=== PATIENT | male | born 1940 | race Caucasian/White ===

== ENCOUNTER 2016-12-03 19:39 | Observation (INO) | payer MEDICARE, OTHER ==
[~2016-12-03] VITALS: Ht 172.7 cm; Wt 85.8 kg
[2016-12-03 19:42] VITALS: BP 131/77; PULSE 52; RESP 16; O2SAT 96
--- NOTE | 2016-12-03 20:09 | ED.REPORT ---
HPI-Neurologic Deficit Date of Service December 03, 2016 ED Provider: Dr. Ahumada 76 y/o male with no pertinent hx presents to the ED due to left sided facial droop, onset 8 hours ago at approximately 13:30 that lasted for about 30 minutes. 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 His also reported slight L sided facial droop. The pt denies any arm weakness. Pt also complains of fatigue, weakness and headache. All the sx have now reportedly resolved. The pt states his headaches are frequent and that is what mainly concerns him the most. Pt denies any difficulty with speech. Pt denies HTN and HLD. Denies smoking, EtOH use and drugs. PCP [facility] Nursing Notes Stated Complaint: WEAKNESS, LEFT FACIAL DROOP Chief Complaint: Neuro Symptoms/ Deficits Nursing Notes Reviewed: Yes Allergies: Coded Allergies: Penicillins (Verified Allergy, Mild, Hives, 12/04/16) Scheduled Levothyroxine (Synthroid) 25 Mcg Tablet 25 MCG PO MORNING General Time Seen by Provider: 20:08 Chief Complaint Other (Left sided facial droop) Hx Obtained From: Patient, Spouse Arrived By: Walk-in Sudden in Onset?: Yes Onset Occurred: 5 - 8 hours ago Symptom Duration: 16 - 30 minutes Progression Since Onset: Resolved Location: : Head Quality: Painful Radiation: : Does not radiate Severity: Current: Mild Severity: Maximum: Moderate Recent Healthcare: No recent doctor visit Similar Sx Previous: No Risk Factors TPA Administration/Criteria Stroke Thrombolytic Therapy : TPA Considered: No TPA Administered Intravenously: No, exclusion criteria (Outside of time frame) NIH Stroke Scale Level of Consciousness: Alert and responsive (0) Ask Month & Age: Both questions right (0) Open/Close 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/Hand Manufacturing 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 tasks (0) Horizontal EO Movements: None (0) Visual Root: No visual loss (0) Facial Palsy: Normal symmetry (0) Right Arm Motor Drift (10s): No drift 10 sec (0) Left Arm Motor Drift (10s): No drift 10 sec (0) Right Leg Motor Drift (5s): No drift 5 sec (0) Left Leg Motor Drift (5s): No drift 5 sec (0) Limb Ataxia FNF/Heel-Hiar: No ataxia (0) Sensation (Arms/Legs/Face): No sensory loss (0) Language Aphasia: No aphasia, normal (0) Dysarthria: No dysarthria, normal (0) Extinction/Inattention: No exctinct/inattent (0) NIHSS Score: 0 Time NIHSS Performed: 23:04 Date NIHSS Performed: December 03, 2016 Past Medical History Past Medical History none reported Past Surgical History Hernia repair Smoking History Never Smoker Social History Alcohol Use: Denies alcohol use Drug Use: Denies drug use Other Social History: Good social support, Ambulatory Status Independent Review of Systems Reports: left sided facial droop Constitutional: Reports: Fatigue, Weakness - generalized Neurologic: Reports: Focal weakness (Left arm), Headache, Weakness, Denies: Slurred speech, Unable to speak Complete sys rev & neg: except as marked. Physical Exam Initial Vital Signs Vital Signs (First) Date Time Temp Pulse Resp B/P Pulse Ox O2 Delivery O2 Flow Rate FiO2 12/03/16 19:42 36.6 52 16 131/77 96 Room Air Initial VS: Reviewed ENT: Mucous membranes moist, Conjunctiva normal, No scleral icterus Abdomen / GI: Soft, Non-tender, No guarding, No rebound, No distention Extremities: Vascular intact, Neuro intact, No swelling, No tenderness Skin: Warm, Dry, No cyanosis Psychiatric: Mood/affect normal, Behavior normal, Normal thought content General/Constitutional: Awake, Alert, Cooperative Head / Eyes: Atraumatic, Normocephalic, PERRL Respiratory / Chest: Breath sounds NL, Breath sounds = bilat, No respiratory distress, No rales, No rhonchi, No wheezing Cardiovascular: Heart rate NL, Regular rhythm, Heart sounds NL, No gallop, No murmurs, No rubs, Peripheral circulation NL Neurologic: Oriented X3, Speech NL, No motor deficits, No sensory deficits Neck: Atraumatic, Full range of motion, No carotid bruit Interpretation & Diagnostics Lab Results Interpretation Result Diagram: 12/03/16201912/03/16 2020 Test 12/03/16 20:20 12/03/16 20:21 12/03/16 23:38 White Blood Count 5.8th/mm3 (3.8-10.1) Red Blood Count 4.37mil/mm3 (4.40-5.80) Hemoglobin 13.4g/dL (13.8-17.2) Hematocrit 37.6% (41.0-50.0) Mean Corpuscular Volume 86.0fL (81-100) Mean Corpuscular Hemoglobin 30.7pg (27.0-35.0) Mean Corpuscular Hemoglobin Concent 35.6% (32.0-37.0) Red Cell Distribution Width 13.3% (12.3-15.4) Platelet Count 215bil/L (150-400) Neutrophils (%) (Auto) 57.5% (40-74) Lymphocytes (%) (Auto) 29.3% (14-46) Monocytes (%) (Auto) 10.6% (4-12) Eosinophils (%) (Auto) 1.5% (0-5) Basophils (%) (Auto) 0.9% (0-3) Sodium Level 140mEq/L (134-144) Potassium Level 4.1mEq/L (3.5-5.2) Chloride Level 103mEq/L (97-108) Carbon Dioxide Level 25mmol/L (18-29) Blood Urea Nitrogen 16mg/dL (8-27) Creatinine 0.78mg/dL (0.76-1.27) Estimat Glomerular Filtration Rate 103mL/min (>59) Glucose Level 95mg/dL (60-99) Calcium Level 9.8mg/dL (8.5-10.1) Total Bilirubin 0.3mg/dL (0.0-1.2) Aspartate Amino Transf (AST/SGOT) 21U/L (0-50) Alanine Aminotransferase (ALT/SGPT) 18U/L (0-44) Alkaline Phosphatase 60U/L (25-160) Troponin T < 0.010ug/L (0.0-0.011) Total Protein 6.4g/dL (6.4-8.4) Albumin 4.0g/dL (3.4-5.0) Hold Helm Top Tube Received (Received) Triglycerides Level 108mg/dL (0-149) Cholesterol Level 173mg/dL (100-199) LDL Cholesterol, Calculated 102.400mg/dL (0-99) VLDL Cholesterol 21.600mg/dL HDL Cholesterol 49mg/dL (>39) Cholesterol/HDL Ratio 3.53 (0.0-4.4) General Lab Results Interp 1: Labs reviewed ECG Interpretation ECG Interpretation: Sinus bradycardia. Rate 50. 1st AV block. Time: 20:26 Interpreted by: ED physician CT Head Interpretation IMPRESSION: No acute intracranial process Dictated by: Tolu Alva M.D. on 12/03/2016 at 20:21 Approved by: Toul Alva M.D. on 12/03/2016 at 20:23 Study: Head CT no contrast Interpretation / Wet Read by: Interpret - Radiologist Re-Eval/Medical Decision Med Decision/Clinical Course 76-year-old male in remarkably good health presents with symptoms of a TIA. Neurologic deficits of resolved completely. He will be admitted to the hospitalist service for observation. Re-Evaluation/Progress #1: Time of Eval: 22:26 Re-Evaluation/Progress Note: Pt resting comfortably. Re-Evaluation/Progress #2: Time of Eval: 23:15 Re-Evaluation/Progress Note: Updated patient of labs, imaging results, and plan for admission. He understands and agrees with plan. Code status discussed. Pt is full code. Consultation : Referral / Consult Name: Lisa Brewster DO Consulted With: Hospitalist Call Returned at: 23:18 Manager Telemarketing: Will see patient, Agrees with eval, Agrees with plan, Accepts admit Counseled Regarding: Diagnosis, Lab results, Need for admission Discharge & Departure Impression: Primary Impression: TIA (transient ischemic attack) Transient cerebral ischemia type: unspecified Qualified Code: G45.9 - Transient cerebral ischemic attack, unspecified Disposition: ADMITTED TO HOSPITAL Discharge Condition All VS Reviewed: Yes Scribe Attestation Portions of this note were transcribed by Radhika Gale and Meera Weber. I, , personally performed the history, physical exam and medical decision- making;I reviewed and confirmed the accuracy of the information in the transcribed note. Signed by Radhika Gale and Meera Weber, Scribe. 12/03/16 2318 Herve Ahumada MD December 03, 2016 20:09 Radhika Gale December 03, 2016 20:12 Meera Weber December 03, 2016 22:26
--- NOTE | 2016-12-03 20:25 | DRSVH ---
PROCEDURE: CT BRAIN WITHOUT CONTRAST ([id number]) INDICATIONS: left facial droop, confusion, started at 1330 TECHNIQUE: Noncontrast 4.5 mm thick angled axial sections acquired from the foramen magnum to the vertex, with c oronal reformats. COMPARISON: None. FINDINGS: Image quality: Excellent. CSF spaces: Basal cisterns are patent. No extra-axial fluid collections. The ventricles are symmet keith in size and shape. Brain: No intracranial bleeds or masses. There is cerebral volume loss for age, with resultant vent ricular and sulcal prominence. There are periventricular and deep white matter chronic small vessel ischemic changes. There is intracranial internal carotid artery atherosclerosis. Skull and face: Calvarium and visualized facial bones appear intact, without suspicious lesions. Sinuses: Visualized sinuses and mastoids are clear. IMPRESSION: No acute intracranial process Dictated by: Tolu Alva M.D. on 12/03/2016 at 20:21 Approved by: Tolu Alva M.D. on 12/03/2016 at 20:23
[2016-12-03 20:33] LABS: BASOPHILS % (AUTO) 0.9 % (0-3); EOSINOPHILS % (AUTO) 1.5 % (0-5); MONOCYTES % (AUTO) 10.6 % (4-12); Mean Corpuscular Hemoglobin 30.7 pg (27.0-35.0); NEUTROPHILS % (AUTO) 57.5 % (40-74); Platelet Count 215 bil/L (150-400)
[2016-12-03 20:49] LABS: TROPONIN T < 0.010 ug/L (0.0-0.011)
[2016-12-03 20:56] VITALS: BP 132/76; PULSE 50; RESP 16; O2SAT 97
[2016-12-03] MEDS ORDERED: Polyethylene Glycol (PEG) 17 Gm Powder PO PRN (23:40)
[2016-12-03] MEDS ORDERED: Ondansetron 2 mg/mL 2 mL Inj IVPUSH PRN (23:40)
[2016-12-03] MEDS ORDERED: Alum-Mag Hydrox-Simeth 30 mL Suspension PO PRN (23:40)
[2016-12-03] MEDS ORDERED: Labetalol 5 mg/mL 4 mL Inj IVPUSH PRN (23:40)
[2016-12-04] VITALS (9 sets, daily range): BP systolic 119–136; BP diastolic 69–84; PULSE 51–74; RESP 12–20; O2SAT 96–99
--- NOTE | 2016-12-04 00:24 | NUR ---
Report received from Padmini Zavaleta in ED.
--- NOTE | 2016-12-04 01:27 | NUR ---
ADMIT Pt arrived on floor at 0124, ambulated well to bed. No symptoms at this time.
--- NOTE | 2016-12-04 01:40 | PCM.HPMED ---
Subjective Date of Service December 04, 2016 Primary Provider: Admitting Physician: Lisa Brewster DO Primary Care Physician: Noplouise Attending Physician: Lisa Brewster DO Admit Status: From the Emergency Department, Remote Telemetry Chief Complaint: Weakness with left facial droop History of Present Illness: Patient is 76 y/o male with chronic headaches presents to the ED due to left sided facial droop, onset 8 hours ago at approximately 13:30 that lasted for about 30 minutes. 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 His also reported slight L sided facial droop. Patient denies experiencing any arm weakness, slurred speech, or facial droop, but came in today due to 's concerns. Patient attributes this to being tired after playing a round of golf on 2-3 hours of sleep. Pt also complains of fatigue, weakness and headache. All the sx have now reportedly resolved. Patient states his headaches are frequent and that is what mainly concerns him the most. Pt denies HTN and HLD. Denies smoking, EtOH use and drugs. In the ED vitals all within normal range. Labs significant only for H/H of 13.4 /37.6, otherwise within normal range. ECG showed sinus bradycardia rate 50 with first AV block. CT head negative for any acute intracranial process. Patient is being admitted as observational status to further evaluate his possible stroke. PCP [facility] - Farshad Chairez M.D. Review of Systems: Reports: left sided facial droop (per 's report, patient denies) Constitutional: Reports: Fatigue, Weakness - generalized HEENT: Reports headaches, denies vision changes GI: Denies nausea or vomiting Neurologic: Reports: Weakness, Denies: Slurred speech, Unable to speak Complete sys rev & neg: except as marked. A comprehensive review of systems has been conducted with the patient and found to be negative except what is mentioned above or in the HPI. Allergies Coded Allergies: Penicillins (Verified Allergy, Mild, Hives, 12/04/16) Home Medications Levothyroxine 25 g Advil 200mg tab 1-5 tabs a day for headaches PMH Chronic headaches Hypothyroidism Congenital sinus deficiency Surgical History Nasal surgery multiple hernia repairs appendectomy Family History Father of lung cancer at 42 Mother with emphysema Social History Occupation: ex [employer] Hx Alcohol Use: No Hx Substance Use: No Hx Tobacco Use: No Smoking Status: Never Smoker Living Arrangement: with Family (, local resident) Exam Vital Signs Vital Sign - Last Date Time Temp Pulse Resp B/P Pulse Ox O2 Delivery O2 Flow Rate FiO2 12/03/16 20:56 36.6 50 16 132/76 97 Room Air Exam General: No acute distress, well-developed, well-nourished, appropriately interactive and cooperative, stoic, appears younger than stated age HEENT: Normocephalic, atraumatic. PERRL. EOMI. Anicteric sclerae, moist conjunctivae. Moist mucosus membranes. Narrow oropharynx. Neck: Supple with full range of motion. No JVD. No bruits. No lymphadenopathy. Cardiovascular: Regular rate and rhythm with no murmurs, rubs, or gallops appreciated. No carotid bruits Pulmonary: Clear to auscultation bilaterally with no crackles, wheezes, or rhonchi. Abdomen: Bowel tones present. Soft, nontender, nondistended. Extremities: No clubbing, cyanosis, edema Skin: Dry and intact, no rash Neurological: Alert and oriented 3. CN II-XII grossly intact. Normal muscle strength, tone, and bulk. Strength and sensation intact throughout. Psychiatric: Normal mood and affect. Alert and oriented to person, place, and time. Lab and Diagnostics Result Diagram: 12/03/16201912/03/162019 X-Rays, CTs and MRIs Date of Service: 12/03/161950 PROCEDURE: CT BRAIN WITHOUT CONTRAST ([id number]) INDICATIONS: left facial droop, confusion, started at 1330 IMPRESSION: No acute intracranial process Dictated by: Tolu Alva M.D. on 12/03/2016 at 20:21 Approved by: Tolu Alva M.D. on 12/03/2016 at 20:23 12-lead ECG ECG Interpretation: Sinus bradycardia. Rate 50. 1st AV block. Time: 20:26 Interpreted by: ED physician Assessment & Plan Patient is 76 y/o male with chronic headaches presents to the ED due to left sided facial droop, onset 8 hours ago at approximately 13:30 that lasted for about 30 minutes. 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 His also reported slight L sided facial droop. Patient denies experiencing any arm weakness, slurred speech , or facial droop. Patient admitted for further observation and workup of possible TIA. TIA, present on admission. Acute. - All symptoms resolved, with NIH stroke scale at 0 in ED, CT brain negative - telemetry, neuro checks q4HR - Lipids in normal range, A1c pending - Plavix and aspirin started - Swallow eval, PT, OT ordered - Echocardiogram in am Mild anemia, present on admission. - repeat labs in am Chronic headaches, present on admission. - patient usually takes Advil for this - Tylenol PRN Hypothyroidism - Patient's to call in with correct dosing Acetaminophen-fever/headache/mild/moderate pain Antiemetics, as needed Bowel regimen, as needed Patient status: Patient was admitted under observation status with expected length of stay lesser than two midnights. Pain Evaluation: Adequate Pain Control GI Prophylaxis: Not indicated VTE Prophylaxis: Sub-Q Heparin (Unfractionated) Resuscitation Status: CPR: Attempt Resuscitation Attending Statement The patient was seen and examined together with house staff on 12/03/2016 and I agree with the history, exam and plan as outlined in the note above. Betzy Infante DO December 04, 2016 01:11 Lisa Brewster DO December 04, 2016 02:55
[2016-12-04] MEDS ORDERED: LEVO25TA2 PO (01:44)
[2016-12-04 01:47] LABS: APPEARANCE,URINE CLEAR (CLEAR,HAZY); COLOR,URINE YELLOW (YELLOW)
[2016-12-04 01:48] LABS: OCCULT BLOOD,URINE NEGATIVE (NEGATIVE); UROBILINOGEN,URINE NORMAL (NORMAL)
[2016-12-04] MEDS: Heparin 5,000 Unit/mL Inj SUBQ SCH ×2 (02:01→08:12)
[2016-12-04 06:44] LABS: BASOPHILS % (AUTO) 1.5 % (0-3); EOSINOPHILS % (AUTO) 1.7 % (0-5); MONOCYTES % (AUTO) 10.9 % (4-12); Mean Corpuscular Hemoglobin 30.6 pg (27.0-35.0); Mean Corpuscular Volume 85.4 fL (81-100); NEUTROPHILS % (AUTO) 53.2 % (40-74); Platelet Count 201 bil/L (150-400)
--- NOTE | 2016-12-04 11:30 | NUR ---
Case Management: ALVRAEZ and Medicare Part D pamphlet delivered and explained to patient. Original placed in chart, copy left at bedside. Ana Brooks RN
--- NOTE | 2016-12-04 12:44 | NUR ---
Evaluation completed. Please go to "Notes" then click on "Assessments and Notes" (bottom left corner of screen). Then select appropriate discipline tab on top of screen.
--- NOTE | 2016-12-04 13:43 | DRSVH ---
PROCEDURE: MRI STROKE PROTOCOL ([id number]) Pre- and post-contrast brain MRI, non-contrast brain MR angiogram, pre- and postcontrast neck MR josephine ogram INDICATIONS: TIA TECHNIQUE: Brain: Noncontrast axial T1 spin echo, axial T2 fast spin echo, sagittal and axial FLAIR, coronal T2 fast spin echo, axial gradient echo, axial diffusion and ADC through the brain. After the administr ation of contrast, axial 3D VIBE of the cranial vasculature and brain. Brain MRA: Non-contrast 3-D time of flight MR angiogram, with multiple frcuxxx-vwttlscnc-kbxtxrjeqx (MIP) reformats performed. Neck MRA: Axial and sagittal TruFISP through the neck. Coronal dynamic MR angiogram during administ ration of contrast in the arterial and venous phases, with 3-dimenstional bfafwdq-resizstdx-iipfovols n (MIP) reformats constructed from subtraction images. COMPARISON: None. FINDINGS: Image quality: Excellent. BRAIN: CSF spaces: Ventricles are normal in size and shape. Basal cisterns are patent. No extra-axial flu id collections. Brain: No intracranial bleeds or mass effects. Jeffries-white matter interface is normal. Diffusion we ighted images show no acute ischemic insults. Brainstem appears normal. Normal intravascular flow v oids are present. No abnormal intracranial enhancement. Skull and face: Calvarial marrow signal is normal. Orbits appear normal. Sinuses: Sinuses and mastoids are clear. BRAIN MR ANGIOGRAM: Anterior circulation: Intracranial internal carotid arteries are normal in size and enhancement. Th e flow within the paired anterior cerebral arteries is normal and symmetric. The flow within the mid dle cerebral arteries is normal and symmetric. The anterior communicating artery is seen. No stenos es, occlusions, or aneurysms. Posterior circulation: The visualized portions of the vertebral arteries demonstrate normal caliber, and join to form a normal appearing basilar artery. The flow within the posterior cerebral arteries is normal and symmetric. The left posterior cerebral artery demonstrates a origin which is a b enign congenital variant. No stenoses, occlusions, or aneurysms. NECK MR ANGIOGRAM: Carotids: The origins of the common carotid arteries appear patent. The calibers and courses of both common carotid arteries are normal. The bifurcation regions appear normal bilaterally. The interna l carotid arteries demonstrate normal course and caliber. Posterior circulation: The origins of the vertebral arteries appear patent. More superior portions of both vertebral arteries demonstrate normal course and caliber, and join to form a normal appearing basilar artery. IMPRESSION: BRAIN MRI: Normal brain MRI. BRAIN MR ANGIOGRAM: Normal brain MRI. NECK MR ANGIOGRAM: Normal neck MRA. The estimate of stenosis included in the report of the imaging study was calculated using the NASCET method Dictated by: Parminder Stern M.D. on 12/04/2016 at 13:31 Approved by: Parminder Stern M.D. on 12/04/2016 at 13:41
--- NOTE | 2016-12-04 15:48 | PCM.DIMED ---
Discharge Instructions Date of Service December 04, 2016 Dates of Hospitalization December 03, 2016 at 23:57 Discharge Diagnosis Discharge Diagnosis # TIA, present on admission. Acute.resolved # Chronic headaches, present on admission. # Hypothyroidism Test Results Test Results MRI negative for stroke or blocked neck arteries Diet Discharge Diet: Heart Healthy Activity Discharge Activity: Limited until seen by PCP Call your provider Call your provider for: Fever or Chills, Shortness of breath, Bleeding, Chest pain, Vomitting, Excessive diarrhea, Weakness (unilateral) Patient Instructions Patient Instructions You were hospitalized due to TIA . symptoms resolved.Please continue Aspirin 325mg daily and atorvastatin 10 mg daily . please follow up with PCP in 1 week. Follow-up with PCP in: 1 week Remi Nunez MD December 04, 2016 15:48
[2016-12-04] MEDS ORDERED: ASPI325T32 PO (15:49)
[2016-12-04] MEDS ORDERED: ATOR10TA66 PO (15:49)
--- NOTE | 2016-12-04 16:00 | DRSVH ---
[facility] [address] [place] [address] Echocardiogram Report Name: SHAMIR ESCALANTE LStudy Date: 12/04/2016 Height: 68 in Hospital Exam Location: [facility] Weight: 189 lb Gender: Male BSA: 2.0 m2 : 1940 Age: 76 yrs BP: 121/80 mmHg Reason For Study: TIA Ordering Physician: Performed By: [facility] Interpretation Summary The left ventricle is normal in size, wall thickness, and systolic function without any focal wall motion abnormalities with the ejection fraction visually estimated to be 55-60%. Assessment of diastolic parameters indicates normal left ventricular diastolic function and normal filling pressures. The right ventricle is normal in size and function. The right ventricular systolic pressure is estimated at 28 mmHg assuming a right atrial pressure of 3 mm Hg. Both atria are normal in size. The interatrial septum is intact with no Doppler or injection of contrast evidence for an atrial septal defect or an interatrial shunt. There is mild mitral regurgitation and mild pulmonic regurgitation. There is mild to moderate aortic regurgitation and mild to moderate tricuspid regurgitation. The ascending aorta is mildly enlarged. Procedure: A two-dimensional transthoracic echocardiogram with color flow and Doppler was performed. The study quality was technically adequate. There is no prior echocardiogram noted for this patient. A saline contrast injection was performed to assess for cardiac shunting. The patient was in sinus bradycardia with heart rates between 49-56 bpm during the exam. Left Ventricle: The left ventricle is normal in size, wall thickness, and systolic function without any focal wall motion abnormalities. The ejection fraction is estimated to be 55-60%. Assessment of diastolic parameters indicates normal left ventricular diastolic function and normal filling pressures. Right Ventricle: The right ventricle is normal in size and function. Atria: Both atria are normal in size. The interatrial septum is intact with no evidence for an atrial septal defect. There is no Doppler evidence for an interatrial shunt. Injection of contrast documented no interatrial shunt. Mitral Valve: The mitral valve leaflets appear mildly thickened, but open well. There is mild mitral regurgitation. Aortic Valve: The aortic valve is trileaflet. The aortic valve is slightly calcified. The aortic valve opens well. There is mild to moderate aortic regurgitation. Tricuspid Valve: The tricuspid valve leaflets are thin and pliable. There is mild to moderate tricuspid regurgitation. The right ventricular systolic pressure is estimated at 28 mmHg assuming a right atrial pressure of 3 mm Hg. Pulmonic Valve: The pulmonic valve is not well seen, but is grossly normal. There is mild pulmonic regurgitation. Great Vessels: The aortic root is normal size. The ascending aorta is mildly enlarged. The aortic arch is normal in size. The IVC is of normal diameter and collapses greater than 50% with a sniff. This suggests a low right atrial pressure of 3 mm Hg. Pericardium/ Pleura There is no pericardial effusion. MMode/2D Measurements & Calculations LVIDd: 5.1 cm LA dimension: 3.3 cm RA long axis LVOT diam: 2.1 cm LVIDs: 3.4 cm Ao root diam FS: 33.2 % LA A2 area: 14.2 cm RA area EPSS: 0.73 cm LA A4 area: 16.6 cm asc Aorta Diam IVSd: 0.89 cm LA length (vol) : 17.3 cm LVPWd: 0.96 cm RA vol Ao Arch Diam (Prox LA vol: 39.4 ml : 40.8 ml Trans): 2.4 cm LA vol index RA : 20.4 mm2 IVC diam: 1.4 cm LV ulloa. diameter/BSA LV sys. diameter/BSA RVD1 (basal) (cm/m^2): 2.6 (cm/m^2): 1.7 Doppler Measurements & Calculations Ao V2 max MV E max leander MV E/A: 1.0 TR max leander : 129.0 cm/sec : 43.7 cm/sec Med Peak E' Leander : 250.7 cm/sec Ao max PG MV A max leander TR max PG : 6.7 mmHg : 43.2 cm/sec E/E' med: 8.1 : 25.1 mmHg Ao mean PG MV P1/2t: 103.2 msec Lat Peak E' Leander PA V2 max : 67.3 cm/sec LVOT Max Leander E/E' lat: 5.5 PA mean PG : 95.2 cm/sec E/e' average: 6.8 PA Accel Time JOHN(I,D): 2.7 cm : 0.13 sec sev ratio AI P1/2t : 1364 msec AI dec slope : 82.9 cm/s2c MV dec time MV P1/2t max leander Ao V2 mean LV V1 max PG : 0.35 sec : 80.6 cm/sec MVA(P1/2t): 2.1 cm2 Ao V2 VTI: 23.3 cmLV V1 VTI JOHN(V,D): 2.5 cm2 : 18.7 cm PA V2 mean JOHN indexed to BSA : 48.1 cm/sec (cm^2/m^2): 1.4 Reading Physician:03:59 PM
--- NOTE | 2016-12-04 16:14 | PCM.DC.MED ---
Discharge Summary Date of Service December 04, 2016 Dates of Hospitalization Date of Hospital Admission December 03, 2016 at 23:57 Date of Discharge: December 04, 2016 Providers: Admitting Physician: Lisa Brewster DO Primary Care Physician: Prem Attending Physician: Lisa Brewster DO Diagnosis at Time of Discharge Diagnosis at Time of Discharge # TIA, present on admission. Acute.resolved # Chronic headaches, present on admission. # Hypothyroidism Consultations none Procedures XRay, CTs & MRIs Date of Service: 12/03/161950 PROCEDURE: CT BRAIN WITHOUT CONTRAST ([id number]) INDICATIONS: left facial droop, confusion, started at 1330 IMPRESSION: No acute intracranial process Dictated by: Tolu Alva M.D. on 12/03/2016 at 20:21 Approved by: Tolu Alva M.D. on 12/03/2016 at 20:23 PROCEDURE: MRI STROKE PROTOCOL ([id number]) Pre- and post-contrast brain MRI, non-contrast brain MR angiogram, pre- and postcontrast neck MR angiogram INDICATIONS: TIA IMPRESSION: BRAIN MRI: Normal brain MRI. BRAIN MR ANGIOGRAM: Normal brain MRI. NECK MR ANGIOGRAM: Normal neck MRA. The estimate of stenosis included in the report of the imaging study was calculated using the NASCET method Dictated by: Parminder Stern M.D. on 12/04/2016 at 13:31 ECG 12 Lead ECG Interpretation: Sinus bradycardia. Rate 50. 1st AV block. Time: 20:26 Interpreted by: ED physician Cardiac Echo Impression Interpretation Summary The left ventricle is normal in size, wall thickness, and systolic function without any focal wall motion abnormalities with the ejection fraction visually estimated to be 55-60%. Assessment of diastolic parameters indicates normal left ventricular diastolic function and normal filling pressures. The right ventricle is normal in size and function. The right ventricular systolic pressure is estimated at 28 mmHg assuming a right atrial pressure of 3 mm Hg. Both atria are normal in size. The interatrial septum is intact with no Doppler or injection of contrast evidence for an atrial septal defect or an interatrial shunt. There is mild mitral regurgitation and mild pulmonic regurgitation. There is mild to moderate aortic regurgitation and mild to moderate tricuspid regurgitation. The ascending aorta is mildly enlarged. Brief History per HPI Patient is 76 y/o male with chronic headaches presents to the ED due to left sided facial droop, onset 8 hours ago at approximately 13:30 that lasted for about 30 minutes. 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 His also reported slight L sided facial droop. Patient denies experiencing any arm weakness, slurred speech, or facial droop, but came in today due to 's concerns. Patient attributes this to being tired after playing a round of golf on 2-3 hours of sleep. Pt also complains of fatigue, weakness and headache. All the sx have now reportedly resolved. Patient states his headaches are frequent and that is what mainly concerns him the most. Pt denies HTN and HLD. Denies smoking, EtOH use and drugs. In the ED vitals all within normal range. Labs significant only for H/H of 13.4 /37.6, otherwise within normal range. ECG showed sinus bradycardia rate 50 with first AV block. CT head negative for any acute intracranial process. Patient is being admitted as observational status to further evaluate his possible stroke. PCP [facility] Farshad Chairez M.D. Hospital Course Patient is 76 y/o male with chronic headaches presents to the ED due to left sided facial droop, onset 8 hours ago at approximately 13:30 that lasted for about 30 minutes. 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 His also reported slight L sided facial droop. Patient denies experiencing any arm weakness, slurred speech , or facial droop. Patient admitted for further observation and workup of possible TIA. TIA, present on admission. Acute. - All symptoms resolved, with NIH stroke scale at 0 in ED, CT brain negative - telemetry, neuro checks q4HR unrevealing - Lipids in normal range, A1c pending - Plavix and aspirin started initially .patient was on ASA 81 mg daily,will discharg alex ASA 325 daily for 4 weks then 81mg daily,started atorvastatin 10mg HS - Echocardiogram unremarkable Mild anemia, present on admission. - repeat labs in am Chronic headaches, present on admission. - patient usually takes Advil for this - Tylenol PRN Hypothyroidism - Patient's to call in with correct dosing discharged home condition stable Exam Vital Signs (Last) Date Time Temp Pulse Resp B/P Pulse Ox O2 Delivery O2 Flow Rate FiO2 12/04/16 14:47 74 12 121/80 99 Room Air 5/26/17 10:14 36.6 Exam General: No acute distress, well-developed, well-nourished, appropriately interactive and cooperative, stoic, appears younger than stated age HEENT: Normocephalic, atraumatic. PERRL. EOMI. Anicteric sclerae, moist conjunctivae. Moist mucosus membranes. Narrow oropharynx. Neck: Supple with full range of motion. No JVD. No bruits. No lymphadenopathy. Cardiovascular: Regular rate and rhythm with no murmurs, rubs, or gallops appreciated. No carotid bruits Pulmonary: Clear to auscultation bilaterally with no crackles, wheezes, or rhonchi. Abdomen: Bowel tones present. Soft, nontender, nondistended. Extremities: No clubbing, cyanosis, edema Skin: Dry and intact, no rash Neurological: Alert and oriented 3. CN II-XII grossly intact. Normal muscle strength, tone, and bulk. Strength and sensation intact throughout. Psychiatric: Normal mood and affect. Alert and oriented to person, place, and time. Test 12/03/16 20:20 12/03/16 20:21 12/03/16 23:38 12/04/16 01:26 Sodium Level 140mEq/L (134-144) Potassium Level 4.1mEq/L (3.5-5.2) Chloride Level 103mEq/L (97-108) Carbon Dioxide Level 25mmol/L (18-29) Blood Urea Nitrogen 16mg/dL (8-27) Creatinine 0.78mg/dL (0.76-1.27) Estimat Glomerular Filtration Rate 103mL/min (>59) Glucose Level 95mg/dL (60-99) Calcium Level 9.8mg/dL (8.5-10.1) Total Bilirubin 0.3mg/dL (0.0-1.2) Aspartate Amino Transf (AST/SGOT) 21U/L (0-50) Alanine Aminotransferase (ALT/SGPT) 18U/L (0-44) Alkaline Phosphatase 60U/L (25-160) Troponin T < 0.010ug/L (0.0-0.011) Total Protein 6.4g/dL (6.4-8.4) Albumin 4.0g/dL (3.4-5.0) Hold Helm Top Tube Received (Received) Triglycerides Level 108mg/dL (0-149) Cholesterol Level 173mg/dL (100-199) LDL Cholesterol, Calculated 102.400mg/dL (0-99) VLDL Cholesterol 21.600mg/dL HDL Cholesterol 49mg/dL (>39) Cholesterol/HDL Ratio 3.53 (0.0-4.4) Urine Color Yellow (YELLOW) Urine Appearance Clear (CLEAR,HAZY) Urine pH 6.0 (5.0-8.0) Urine Specific [place] 1.016 (1.003-1.035) Urine Protein Negativemg/dL (NEG,TRACE) Urine Glucose (UA) Negativemg/dL (NEGATIVE) Urine Ketones Negativemg/dL (NEGATIVE) Urine Occult Blood Negative (NEGATIVE) Urine Nitrite Negative (NEGATIVE) Urine Bilirubin Negative (NEGATIVE) Urine Urobilinogen Normalmg/dL (NORMAL) Urine Leukocyte Esterase Negative (NEGATIVE) Urine RBC 0-2/hpf (0-2) Urine WBC 0-5/hpf (0-5) Urine Epithelial Cells Occasional/hpf (NONE-MOD) Urine Crystals None seen (NONE SEEN) Urine Bacteria None/hpf (NONE-FEW) Urine Hyaline Casts None/lpf (NONE) Urine Granular Casts None seen (NONE SEEN) Urine Waxy Casts None seen (NONE SEEN) Urine Red Blood Cell Casts None seen (NONE SEEN) Urine White Blood Cell Casts None seen (NONE SEEN) Urine Mucus None seen (None Seen) Urine Trichomonas None seen (NONE SEEN) Urine Yeast None (NONE SEEN) Urine Culture Reflexed Not indicated Test 12/04/16 06:15 White Blood Count 4.1th/mm3 (3.8-10.1) Red Blood Count 4.51mil/mm3 (4.40-5.80) Hemoglobin 13.8g/dL (13.8-17.2) Hematocrit 38.5% (41.0-50.0) Mean Corpuscular Volume 85.4fL (81-100) Mean Corpuscular Hemoglobin 30.6pg (27.0-35.0) Mean Corpuscular Hemoglobin Concent 35.8% (32.0-37.0) Red Cell Distribution Width 13.3% (12.3-15.4) Platelet Count 201bil/L (150-400) Neutrophils (%) (Auto) 53.2% (40-74) Lymphocytes (%) (Auto) 32.5% (14-46) Monocytes (%) (Auto) 10.9% (4-12) Eosinophils (%) (Auto) 1.7% (0-5) Basophils (%) (Auto) 1.5% (0-3) Discharge Medications Discharge Medications Aspirin (Aspirin) 325 Mg Tablet 325 MG PO DAILY Prescribed by: ISMAEL SURESH MD Atorvastatin Calcium (Atorvastatin Calcium) 10 Mg Tablet 10 MG PO HS Prescribed by: ISMAEL SURESH MD Levothyroxine (Synthroid) 25 Mcg Tablet 25 MCG PO MORNING (Reported) Followup Plan Disposition: home Discharge Diet: Heart Healthy Discharge Activity: Limited until seen by PCP Patient Instructions You were hospitalized due to TIA . symptoms resolved.Please continue Aspirin 325mg daily and atorvastatin 10 mg daily . please follow up with PCP in 1 week. Follow-up with PCP in: 1 week copies to: [facility] Melaku MD December 04, 2016 16:14
--- NOTE | 2016-12-04 16:22 | NUR ---
Social Work: Initial Assessment / D/C Data: Pt is a 76 y/o female admitted for TIA. Pt's PCP is not listed, pt's insurance is Medicare with [facility]. EMR reviewed. D/C orders are in. TUNNEL MUCKER met with pt at bedside, role explained. PT and ST recommend no therapy needs at d/c. Pt sates that he lives with his in a single story home where he uses no DME, drives, has no hx of HH or SNF, no LTC or VA benefits. No d/c planning needs at this time. TUNNEL MUCKER will continue to follow if needs arise. Assessment: Pt who is independent at baseline. Plan: Pt will d/c home via POV today. No d/c planning needs at this time. TUNNEL MUCKER will continue to follow if needs arise. WARREN Mcnair Addendum: 12/04/16 at 1627 by PAUL RENNER Amended: Links added.
--- NOTE | 2016-12-04 16:33 | NUR ---
Discharge Pt dc'd ambulatory with at 1630. All discharge instructions reviewed and patient verbalized understanding. All belongings with pt on dc. IV dc'd w/o complication.
== END 2016-12-04 16:30 | disposition home or self-care (01) ==
LOC: SED 19:39 → EDBD 19:39 → MOC 23:57
PROVIDERS: ADMIT Internal Medicine; ATTEND Internal Medicine
DX: G45.9 Transient cerebral ischemic attack, unspecified (principal); R29.810 Facial weakness; R53.1 Weakness; D64.9 Anemia, unspecified; R51 Headache; E03.9 Hypothyroidism, unspecified
CPT/HCPCS: 36415; 70450; 70549; 70553; 80053; 80061; 81000; 83036; 84484; 85025; 92610; 93005; 97162; 99285; A9585; C8929; G0378; G8996; G8997; G8998; J1644